=== PATIENT | male | born 1940 | race Caucasian/White ===

== ENCOUNTER 2019-03-27 12:48 | Outpatient (CLI) | payer MEDICARE, BC ==
[2019-03-27 13:10] LABS: TOTAL HEMOGLOBIN 14.1 G/dl (14.0-18.0)
== END 2019-03-27 23:59 | disposition home or self-care (01) ==
LOC: RT 12:48
PROVIDERS: ATTEND Internal Medicine
DX: R06.02 Shortness of breath (principal); Z87.891 Personal history of nicotine dependence; Z79.899 Other long term (current) drug therapy
CPT/HCPCS: 85018; 94010; 94727; 94729

== ENCOUNTER 2022-07-30 13:18 | Emergency (ER) | payer MEDICARE, BC ==
[~2022-07-30] VITALS: Ht 180.3 cm; Wt 84.5 kg
[2022-07-30 15:40] LABS: CLARITY,URINE CLEAR (Clear); COLOR,URINE ORANGE (Yellow); UA COLLECTION TYPE FOLEY CATH
[2022-07-30 15:43] LABS: BACTERIA,URINE FEW /HPF (Neg); MUCUS STRANDS NONE SEEN /LPF (Neg); SQUAMOUS EPITHELIAL CELL,UR NONE SEEN /LPF (FEW); WBC,URINE 0-4 /HPF (0-4)
[2022-07-30 16:48] VITALS: BP 127/65
== END 2022-07-30 16:50 | disposition home or self-care (01) ==
LOC: ER 13:19
DX: R33.9 Retention of urine, unspecified (principal); R30.0 Dysuria; K59.00 Constipation, unspecified; E78.00 Pure hypercholesterolemia, unspecified
CPT/HCPCS: 51702; 81001; 99284; A4314; A4358